=== PATIENT | female | born 1985 | race Two or more races ===

== ENCOUNTER 2018-01-15 14:10 | Emergency (ER) | payer MEDICAID, OTHER ==
[~2018-01-15] VITALS: Ht 172.7 cm; Wt 72.6 kg
[2018-01-15] MEDS ORDERED: ONDANSETRON HCL 4 MG/2 ML VIAL ONE (14:45)
[2018-01-15 15:43] LABS: Basophils # (auto) 0 uL; Basophils % (auto) 0.8 % (0.0-2.0); Eosinophils # (auto) 0 uL; Eosinophils % (auto) 0.7 % (0.0-7.0); Hematocrit 34.8 % (36.0-46.0); Hemoglobin 11.7 g/dL (12.2-16.2); Lymphocytes # (auto) 1.8 uL; Lymphocytes % (auto) 32.2 % (10.0-50.0); Mean Corpuscular Hemoglobin 31.3 pg (28.0-32.0); Mean Corpuscular Hgb Conc. 33.6 g/dL (32.0-36.0); Mean Corpuscular Volume 93.1 fL (80.0-100.0); Monocytes # (auto) 0.2 uL; Monocytes % (auto) 4.3 % (0.0-12.0); Neutrophils # (auto) 3.5 uL; Nucleated Red Blood Cells % 0.1 %; Platelet Count (auto) 405 10^3/uL (140-450); Red Blood Cells 3.74 10^6/uL (4.0-5.20); Red Cell Distribution Width 14.4 % (11.8-14.3); White Blood Cell 5.6 10^3/uL (4.4-10.8)
[2018-01-15] MEDS ORDERED: ONDANSETRON HCL 4 MG/2 ML VIAL IV ONE (16:00)
[2018-01-15 16:06] LABS: Albumin 3.3 g/dL (3.4-5.0); BUN/Creatinine Ratio 14.3; Calcium 7.9 mg/dL (8.5-10.1); Potassium 3.4 mmol/L (3.5-5.1)
[2018-01-15 16:11] LABS: Bilirubin, Total 0.2 mg/dL (0.2-1.0); Total Protein 6.9 g/dL (6.4-8.2)
[2018-01-15 16:25] LABS: Urine WBC None Seen /hpf (0 - 5)
[2018-01-15 16:39] LABS: Urine Bacteria NONE SEEN /hpf (None Seen); Urine Blood Negative /uL (Negative); Urine Specific Gravity 1.002 (1.001-1.035)
[2018-01-15 16:40] LABS: Amphetamine Screen, Urine NEGATIVE (NEGATIVE); Barbiturate Scree,Urine NEGATIVE (NEGATIVE); Benzodiazephine Screen, Urine NEGATIVE (NEGATIVE); Cannabinoid Screen, Urine NEGATIVE (NEGATIVE); Cocaine Screen, Urine NEGATIVE (NEGATIVE); Opiate Scree,Urine NEGATIVE (NEGATIVE); Phencyclidine Screen, Urine NEGATIVE (NEGATIVE)
[2018-01-15 16:41] LABS: Acetaminophen 6.1 ug/mL (10-30); Salicylate < 1.7 mg/dL (2.8-20.0)
[2018-01-15 23:32] VITALS: BP 110/70
== END 2018-01-15 23:33 | disposition home or self-care (01) ==
LOC: ER 14:10
DX: F41.9 Anxiety disorder, unspecified (principal); F10.121 Alcohol abuse with intoxication delirium; E87.6 Hypokalemia; E44.1 Mild protein-calorie malnutrition; Y90.8 Blood alcohol level of 240 mg/100 ml or more; Z68.24 Body mass index [BMI] 24.0-24.9, adult
CPT/HCPCS: 36415; 80053; 80307; 80320; 80329; 81001; 84702; 85025; 99284; J2405; J7030

== ENCOUNTER 2018-05-26 19:51 | Emergency (ER) | payer MEDICAID ==
[~2018-05-26] VITALS: Ht 165.1 cm; Wt 68.0 kg
[2018-05-26 20:15] VITALS: BP 132/91
[2018-05-26] MEDS ORDERED: METHOCARBAMOL 500 MG TAB PO ONE (22:00)
== END 2018-05-27 00:18 | disposition home or self-care (01) ==
LOC: ER 19:52
DX: M54.5 Low back pain (principal); W17.89XA Other fall from one level to another, initial encounter; Y93.31 Activity, mountain climbing, rock climbing and wall climbing; Y99.8 Other external cause status; Y92.89 Other specified places as the place of occurrence of the external cause
CPT/HCPCS: 72070; 81025

== ENCOUNTER 2018-07-10 12:43 | Emergency (ER) | payer MEDICAID ==
[~2018-07-10] VITALS: Ht 167.6 cm; Wt 68.0 kg
[2018-07-10 13:17] VITALS: BP 130/94
== END 2018-07-10 14:22 | disposition home or self-care (01) ==
LOC: ER 12:48
DX: M25.571 Pain in right ankle and joints of right foot (principal); Z76.0 Encounter for issue of repeat prescription; Z87.81 Personal history of (healed) traumatic fracture

== ENCOUNTER 2019-03-02 17:23 | Emergency (ER) | payer MEDICAID, OTHER ==
[~2019-03-02] VITALS: Ht 165.1 cm; Wt 68.0 kg
[2019-03-02 18:34] LABS: Albumin 4.3 g/dL (3.4-5.0); BUN/Creatinine Ratio 10.2; Calcium 9.2 mg/dL (8.5-10.1); Magnesium 2.3 mg/dL (1.6-2.6); Potassium 3.7 mmol/L (3.5-5.1); Salicylate < 1.7 mg/dL (2.8-20.0)
[2019-03-02] MEDS ORDERED: SODIUM CHLORIDE 0.9% 1,000 ML IV ONE (18:34)
[2019-03-02 18:36] LABS: Bilirubin, Total 0.2 mg/dL (0.2-1.0); Total Protein 8.4 g/dL (6.4-8.2)
[2019-03-02 18:41] LABS: Basophils # (auto) 0.1 uL; Eosinophils # (auto) 0.2 uL; Nucleated Red Blood Cells % 0.1 %
[2019-03-02 18:43] LABS: Acetaminophen < 2.0 ug/mL (10-30); Hematocrit 42.4 % (36.0-46.0); Hemoglobin 14.2 g/dL (12.2-16.2); Lymphocytes # (auto) 2.4 uL; Lymphocytes % (auto) 29.2 % (10.0-50.0); Mean Corpuscular Hemoglobin 30.5 pg (28.0-32.0); Mean Corpuscular Hgb Conc. 33.6 g/dL (32.0-36.0); Mean Corpuscular Volume 90.7 fL (80.0-100.0); Monocytes # (auto) 0.5 uL; Monocytes % (auto) 6.6 % (0.0-12.0); Neutrophils # (auto) 4.9 uL; Neutrophils % (auto) 60.2 % (37.0-80.0); Platelet Count (auto) 482 10^3/uL (140-450); Red Blood Cells 4.67 10^6/uL (4.0-5.20); Red Cell Distribution Width 14.4 % (11.8-14.3); White Blood Cell 8.1 10^3/uL (4.4-10.8)
[2019-03-02] MEDS ORDERED: LORazepam 2MG/ML-1ML VIAL IV ONE (18:45)
[2019-03-02] MEDS ORDERED: diphenhdrAMINE HCL 50 MG/1 ML VL IV ONE (19:30)
[2019-03-02 21:01] LABS: Urine WBC None Seen /hpf (0 - 5)
[2019-03-02 21:09] LABS: Urine Bacteria NONE SEEN /hpf (None Seen); Urine Blood TRACE /uL (Negative); Urine Specific Gravity 1.005 (1.001-1.035)
[2019-03-02 21:33] LABS: Amphetamine Screen, Urine NEGATIVE (NEGATIVE); Barbiturate Scree,Urine NEGATIVE (NEGATIVE); Benzodiazephine Screen, Urine POSITIVE (NEGATIVE); Cocaine Screen, Urine POSITIVE (NEGATIVE); Opiate Scree,Urine NEGATIVE (NEGATIVE); Phencyclidine Screen, Urine NEGATIVE (NEGATIVE)
[2019-03-02 21:42] LABS: Cannabinoid Screen, Urine NEGATIVE (NEGATIVE)
[2019-03-03 01:46] VITALS: BP 115/60
== END 2019-03-03 02:23 | disposition home or self-care (01) ==
LOC: EDBD 17:23 → MERGE 17:27 → ER 17:27
DX: F14.10 Cocaine abuse, uncomplicated (principal); F10.129 Alcohol abuse with intoxication, unspecified; F29 Unspecified psychosis not due to a substance or known physiological condition; R41.82 Altered mental status, unspecified; F17.210 Nicotine dependence, cigarettes, uncomplicated
CPT/HCPCS: 36415; 80053; 80307; 80320; 80329; 81001; 83735; 84702; 85025; 94761; 96361; 96374; 96375; 99283; J1200; J2060; J7030